=== PATIENT | male | born 1965 | race Caucasian/White ===

== ENCOUNTER 2021-11-13 23:43 | Inpatient (IN) ==
[2021-11-14] MEDS ORDERED: Ondansetron 4 MG/2 ML VIAL IVP PRN (03:26)
[2021-11-14] MEDS ORDERED: Naloxone 0.4 MG/ML INJ IVP PRN (03:26)
[2021-11-14] MEDS ORDERED: Acetaminophen 325 MG TABLET PO PRN (03:26)
[2021-11-14] MEDS ORDERED: Perflutren Lipid Microsphere 1.3 ML in 0.9 % Sodium Chloride 8.7 ML IVP PRN (03:29)
[2021-11-14] MEDS ORDERED: *HR* Heparin 5,000 UNIT/ML VIAL IVP PRN ×2 (03:30)
[2021-11-14] MEDS: Heparin 25,000UNIT/250ML 1/2NS 25,000 UNIT/250 ML IV.SOLN IVC SCH ×2 (03:59→23:45)
[2021-11-14 04:07] LABS: Basophils # 0.1 K/mcL (0.0-0.2); Basophils % 1.3 %; Eosinophils # 0.5 K/mcL (0.0-0.6); Eosinophils % 7.4 %; Hematocrit 48.4 % (37.5-50.1); Lymphocytes # 2.1 K/mcL (0.6-4.6); Lymphocytes % 34.1 %; Mean Corpuscular HGB Conc 33.1 g/dL (31.6-35.5); Mean Corpuscular Hemoglobin 30.3 pg (28.0-33.3); Mean Corpuscular Volume 91.7 fL (83.0-100.0); Mean Platelet Volume 9.3 fL (9.4-12.4); Monocytes # 0.5 K/mcL (0.0-1.3); Monocytes % 7.5 %; Platelet Count 152 K/mcL (140-400); Red Blood Count 5.28 M/mcL (4.19-5.50); Red Cell Distribution Width 13.5 % (11.5-14.5); Segmented Neutrophils % 48.7 %; White Blood Count 6.2 K/mcL (4.3-11.1)
[2021-11-14 04:16] LABS: Heparin anti-factor XA UFH 0.17 IU/mL (0.30-0.70)
[2021-11-14 04:38] LABS: Chol/HDL Ratio 5.5 (0-4.9); Cholesterol 231 mg/dL (< 200); HDL Cholesterol 42 mg/dL (40-59); LDL Cholesterol,Calculated 153 mg/dL (< 100); Magnesium 2.1 mg/dL (1.6-2.6); Phosphorous 4.2 mg/dL (2.7-4.5); Triglycerides 180 mg/dL (< 150)
[2021-11-14 04:43] LABS: Troponin I 0.49 ng/mL (< 0.04)
[2021-11-14 04:48] LABS: Bilirubin,Urine Negative (Negative); Blood,Urine Negative (Negative); Clarity,Urine Clear (Clear); Color,Urine Light-Yellow (Yellow); Glucose,Urine (UA) Normal (Normal); Ketones,Urine Negative (Negative); Leukocyte Esterase,Urine Negative (Negative); Nitrite,Urine Negative (Negative); PH,Urine 6.5 pH Units (5.0-8.0); Protein,Urine Negative (Neg-Trace); Specific Gravity,Urine 1.019 (1.010-1.025); Urobilinogen,Urine Normal (Normal)
[2021-11-14 06:39] LABS: BUN/Creatinine Ratio 23 (6-26); Blood Urea Nitrogen 21 mg/dL (6-20); Calcium 9.5 mg/dL (8.6-10.3); Carbon Dioxide 25 mEq/L (23-29); Chloride 102 mEq/L (98-107); Glucose 113 mg/dL (70-105); Osmolality,Calculated 286 (280-300); Potassium 4.5 mEq/L (3.5-5.1); Sodium 136 mEq/L (136-145); eGFR For African Americans > 60 (> 60); eGFR For Non-African Americans > 60 (> 60)
[2021-11-14 06:41] LABS: Adenovirus Not Detected (Not Detect); Bordetella Pertussis Not Detected (Not Detect); Chlamydophila pneumoniae Not Detected (Not Detect); Coronavirus 229E Not Detected (Not Detect); Coronavirus HKU1 Not Detected (Not Detect); Coronavirus NL63 Not Detected (Not Detect); Coronavirus OC43 Not Detected (Not Detect); Human Metapneumovirus Not Detected (Not Detect); Human Rhinovirus/Enterovirus Not Detected (Not Detect); Influenza A Subtype 2009 H1 Not Detected (Not Detect); Influenza B Not Detected (Not Detect); Mycoplasma pneumoniae Not Detected (Not Detect); Parainfluenza Virus 1 Not Detected (Not Detect); Parainfluenza Virus 2 Not Detected (Not Detect); Parainfluenza Virus 3 Not Detected (Not Detect); Parainfluenza Virus 4 Not Detected (Not Detect); Respiratory Syncytial Virus Not Detected (Not Detect); SARS-CoV-2 Not Detected (Not Detect)
[2021-11-14 07:14] LABS: Alanine Aminotransferase 25 Units/L (7-52); Albumin 3.9 g/dL (3.5-5.7); Albumin/Globulin Ratio 1.5 (1.1-2.2); Alkaline Phosphatase 72 Units/L (34-104); Aspartate Amino Transferase 25 Units/L (13-39); Bilirubin,Direct 0.1 mg/dL (0.0-0.2); Bilirubin,Indirect 0.2 mg/dL (0.0-1.0); Bilirubin,Total 0.3 mg/dL (0.3-1.0); Globulin 2.6 g/dL (2.4-3.5); Thyroid Stimulating Hormone 1.497 mcIU/mL (0.340-5.600); Total Protein 6.5 g/dL (6.4-8.9)
[2021-11-14] MEDS: FLUoxetine 20 MG CAPSULE PO SCH (09:15)
[2021-11-14] MEDS: *HR* OxyCODONE/APAP 7.5/325 TABLET PO PRN ×2 (09:16→15:58)
[2021-11-14] MEDS: Aspirin 81 MG TAB.CHEW PO SCH (15:58)
[2021-11-14] MEDS: predniSONE 20 MG TABLET PO SCH (16:15)
[2021-11-14] MEDS: Methylphenidate HCl 5 MG TABLET PO SCH (20:49)
[2021-11-15 01:58] LABS: Hematocrit 49.4 % (37.5-50.1); Hemoglobin 16.2 g/dL (12.9-16.9); Mean Corpuscular HGB Conc 32.8 g/dL (31.6-35.5); Mean Corpuscular Hemoglobin 30.2 pg (28.0-33.3); Mean Platelet Volume 9.8 fL (9.4-12.4); Platelet Count 179 K/mcL (140-400); Red Blood Count 5.37 M/mcL (4.19-5.50); Red Cell Distribution Width 13.4 % (11.5-14.5); White Blood Count 6.3 K/mcL (4.3-11.1)
[2021-11-15 02:16] LABS: BUN/Creatinine Ratio 20 (6-26); Blood Urea Nitrogen 19 mg/dL (6-20); Calcium 9.5 mg/dL (8.6-10.3); Carbon Dioxide 25 mEq/L (23-29); Chloride 104 mEq/L (98-107); Glucose 222 mg/dL (70-105); Osmolality,Calculated 291 (280-300); Potassium 4.6 mEq/L (3.5-5.1); Sodium 136 mEq/L (136-145); eGFR For African Americans > 60 (> 60); eGFR For Non-African Americans > 60 (> 60)
[2021-11-15 02:30] LABS: Lymphocytes # 0.8 K/mcL (0.6-4.6); Neutrophils # 5.5 K/mcL (1.6-8.9); Platelet Estimate Normal (Normal)
[2021-11-15] MEDS: *HR* OxyCODONE/APAP 7.5/325 TABLET PO PRN ×3 (06:13→19:33)
[2021-11-15] MEDS ORDERED: Methylphenidate HCl 5 MG TABLET PO SCH (08:00)
[2021-11-15] MEDS: FLUoxetine 20 MG CAPSULE PO SCH (08:06)
[2021-11-15] MEDS: Methylphenidate HCl 5 MG TABLET PO SCH ×2 (08:07→11:48)
[2021-11-15] MEDS: predniSONE 20 MG TABLET PO SCH ×2 (08:07→16:42)
[2021-11-15] MEDS: Aspirin 81 MG TAB.CHEW PO SCH (08:07)
[2021-11-15] MEDS ORDERED: Nicotine 21 MG PATCH.TD24 TD SCH (13:12)
[2021-11-15] MEDS ORDERED: *HR* FentaNYL (PF) 100 MCG/2 ML VIAL ONE (13:24)
[2021-11-15] MEDS ORDERED: 0.9 % Sodium Chloride 2,000 ML ONE (13:25)
[2021-11-15] MEDS ORDERED: *HR* Midazolam HCl 2 MG/2 ML VIAL ONE ×2 (13:25→14:37)
[2021-11-15] MEDS ORDERED: ISOVUE-370 200 ML INFUS..BTL ONE ×2 (13:26→14:31)
[2021-11-15] MEDS ORDERED: Heparin 1,000 UNITS/500 mL 500 ML ONE (13:26)
[2021-11-15] MEDS ORDERED: *HR* Heparin 10,000 UNIT/10 ML VIAL ONE (13:26)
[2021-11-15] MEDS ORDERED: Nitroglycerin 1,000 MCG/5 ML VIAL IV ONE (13:27)
[2021-11-15] MEDS ORDERED: methylPREDNISolone 125 MG/2 ML VIAL ONE (13:48)
[2021-11-15] MEDS ORDERED: *HR* Bivalirudin 250 MG VIAL IVC ONE ×2 (14:23→14:51)
[2021-11-15] MEDS ORDERED: *HR* Ticagrelor 90 MG TABLET ONE (14:40)
[2021-11-15] MEDS ORDERED: 0.9 % Sodium Chloride 1,000 ML IVC SCH (15:15)
[2021-11-15] MEDS: Nicotine 21 MG PATCH.TD24 TD SCH (16:43)
[2021-11-15] MEDS: *HR* Ticagrelor 90 MG TABLET PO SCH (21:27)
[2021-11-15] MEDS: Baclofen 10 MG TABLET PO SCH (21:27)
[2021-11-16] MEDS: *HR* OxyCODONE/APAP 7.5/325 TABLET PO PRN ×2 (01:20→08:24)
[2021-11-16 02:06] LABS: Basophils # 0.1 K/mcL (0.0-0.2); Basophils % 0.4 %; Hemoglobin 15.9 g/dL (12.9-16.9); Immature Granulocytes % 1.5 % (0-4); Lymphocytes # 1.4 K/mcL (0.6-4.6); Lymphocytes % 8.2 %; Mean Corpuscular HGB Conc 33.8 g/dL (31.6-35.5); Mean Corpuscular Volume 91.6 fL (83.0-100.0); Mean Platelet Volume 9.7 fL (9.4-12.4); Monocytes % 5.8 %; Neutrophils # 13.9 K/mcL (1.6-8.9); Platelet Count 194 K/mcL (140-400); Red Blood Count 5.13 M/mcL (4.19-5.50); Red Cell Distribution Width 13.2 % (11.5-14.5); Segmented Neutrophils % 84.1 %
[2021-11-16 02:08] LABS: White Blood Count 16.5 K/mcL (4.3-11.1)
[2021-11-16 02:24] LABS: BUN/Creatinine Ratio 25 (6-26); Blood Urea Nitrogen 20 mg/dL (6-20); Calcium 9.3 mg/dL (8.6-10.3); Carbon Dioxide 25 mEq/L (23-29); Chloride 105 mEq/L (98-107); Glucose 155 mg/dL (70-105); Osmolality,Calculated 290 (280-300); Potassium 4.4 mEq/L (3.5-5.1); Sodium 137 mEq/L (136-145); eGFR For African Americans > 60 (> 60); eGFR For Non-African Americans > 60 (> 60)
[2021-11-16 06:59] VITALS: TEMP 97.8
[2021-11-16] MEDS: Aspirin 81 MG TAB.CHEW PO SCH (08:23)
[2021-11-16] MEDS: *HR* Ticagrelor 90 MG TABLET PO SCH (08:23)
[2021-11-16] MEDS: Baclofen 10 MG TABLET PO SCH (08:23)
[2021-11-16] MEDS: FLUoxetine 20 MG CAPSULE PO SCH (08:23)
[2021-11-16] MEDS: predniSONE 20 MG TABLET PO SCH (08:24)
[2021-11-16] MEDS ORDERED: Nicotine 21 MG PATCH.TD24 TD SCH (09:00)
[2021-11-16] MEDS ORDERED: 0.9 % Sodium Chloride 2,000 ML ONE (12:24)
[2021-11-16] MEDS ORDERED: Heparin 1,000 UNITS/500 mL 500 ML ONE (12:24)
[2021-11-16] MEDS ORDERED: ISOVUE-370 200 ML INFUS..BTL ONE (12:25)
[2021-11-16] MEDS ORDERED: *HR* Heparin 10,000 UNIT/10 ML VIAL ONE ×2 (12:25→12:47)
[2021-11-16] MEDS ORDERED: Nitroglycerin 1,000 MCG/5 ML VIAL IV ONE (12:25)
[2021-11-16] MEDS ORDERED: *HR* FentaNYL (PF) 100 MCG/2 ML VIAL ONE (12:47)
[2021-11-16] MEDS ORDERED: *HR* Midazolam HCl 2 MG/2 ML VIAL ONE ×2 (12:47→13:32)
[2021-11-16] MEDS ORDERED: *HR* Heparin 5,000 UNIT/ML VIAL SQ SCH (14:00)
[2021-11-16 15:50] VITALS: O2SAT 96
[2021-11-16] MEDS: Nicotine 21 MG PATCH.TD24 TD SCH (16:36)
[2021-11-16 16:44] VITALS: BP 128/65; PULSE 82
[2021-11-17] MEDS ORDERED: lisinopriL 5 MG TABLET PO SCH (09:00)
== END 2021-11-16 18:13 | disposition home or self-care (01) ==
LOC: 2NENU → SUATTDRO 11-15 18:25
PROVIDERS: ADMIT Internal Medicine; ATTEND Internal Medicine